=== PATIENT | female | born 1970 | race Caucasian/White ===

== ENCOUNTER → 2020-11-03 08:38 | Outpatient (CLI) | payer OTHER, SELFPAY ==
--- NOTE | 2020-11-03 | DI.MRI.S_ITS ---
PROCEDURE: MR CERVICAL SPINE WO/W CON INDICATIONS: Arthrodesis status TECHNIQUE: Noncontrast sagittal T1 spin echo and T2 fast spin echo, sagittal STIR, foraminal oblique sagittal T2 fast spin echo, axial gradient echo or T2 fast spin echo through the cervical spine. After the administration of contrast, axial and sagittal T1 spin echo with fat saturation through the cervical spine. COMPARISON: [facility], MR, C-SPINE WITHOUT CONTRAST, 03/20/2016, 9:00. [facility], CR, XR CERVICAL SPINE 2 OR 3 VIEWS, 05/10/2017, 9:42. FINDINGS: Image quality: Partially degraded by motion artifact.. Alignment and curvature: There is loss of normal cervical lordosis. There is mild grade 1 anterolisthesis of C5 on C6. Marrow: Marrow is normal in overall signal, without suspicious enhancement. C5-C6 fusion has been performed, as before. Spinal cord: Visualized spinal cord has normal size and signal. No cerebellar tonsillar herniation. No abnormal intramedullary enhancement. Paraspinous soft tissues: No paravertebral masses or suspicious enhancement. C2-3: Moderate disc desiccation. No significant canal, or foraminal stenosis. No significant change. C3-4: Moderate disc desiccation. Mild facet and uncovertebral hypertrophy bilaterally. No significant canal, or foraminal stenosis. No significant change. C4-5: Moderate disc desiccation. Mild facet and uncovertebral hypertrophy bilaterally. No significant canal stenosis. No right foraminal stenosis. Increased, moderate left foraminal stenosis.. C5-6: Status post fusion. Left posterolateral protrusion/osteophyte. Mild facet and uncovertebral hypertrophy bilaterally. Mild canal stenosis is unchanged. There is severe left and moderate right foraminal stenosis, as before. Left C6 nerve root compression, as before. No significant change. C6-7: Mild disc desiccation and diffuse disc bulge. Mild facet and uncovertebral hypertrophy bilaterally. No significant canal stenosis. Mild left foraminal stenosis. No right foraminal stenosis. No significant change. C7-T1: Mild facet and uncovertebral hypertrophy. No significant canal stenosis. Mild left greater than right foraminal stenosis. No significant change. IMPRESSION: 1. Postsurgical sequelae. 2. Multilevel degenerative disc and facet disease, as well as uncovertebral hypertrophy. 3. Mild multilevel canal stenosis. 4. Multilevel foraminal stenoses, worst at C5-C6 where there is associated intraforaminal nerve root compression. Dictated by: Anette Aguilera M.D. on 11/03/2020 at 9:59 Approved by: Anette Aguilera M.D. on 11/03/2020 at 10:07
== END ==
PROVIDERS: PCP Student in an Organized Health Care Education/Training Program; Referring Provider Neurological Surgery; Visit Provider Neurological Surgery
DX: M47.22 Other spondylosis with radiculopathy, cervical region (principal); M50.123 Cervical disc disorder at C6-C7 level with radiculopathy; M48.02 Spinal stenosis, cervical region; Z98.1 Arthrodesis status
CPT/HCPCS: 72156; A9579

== ENCOUNTER 2021-01-31 13:10 | Emergency (ER) | payer OTHER, SELFPAY ==
[2021-01-31] VITALS (7 sets, daily range): BP systolic 96–110; BP diastolic 52–72; PULSE 71–92; RESP 8–34; TEMP 36.8; O2SAT 94–98; BMI 12.4
[2021-01-31 14:39] LABS: Add Manual Diff / Slide Review NO; Basophils Absolute Auto 100 /uL (0-100); Eosinophils Absolute Auto 100 /uL (0-450); Eosinophils Percent Auto 1.3 % (2-4); Hematocrit 42.5 % (36-46); Hemoglobin 14.6 g/dL (12.0-16.0); Lymphocytes Absolute Auto 2700 /uL (1100-4500); Lymphocytes Percent Auto 26.8 % (25-40); Mean Corpuscular HGB Conc 34.4 % (30-36); Mean Corpuscular Volume 98.7 fL (80-100); Monocytes Absolute Auto 1000 /uL (0-900); Monocytes Percent Auto 10.1 % (3-14); Neutrophils Absolute Auto 6000 /uL (1500-7000); Neutrophils Percent Auto 60.8 % (50-75); Platelet Count 319 X10^3/uL (150-400); Red Cell Distribution Width 13.7 % (11.6-14.8); White Blood Cell Count 9.9 X10^3/uL (4.5-11.0)
[2021-01-31 14:52] LABS: Alanine Aminotransferase 25 IU/L (<35); Albumin 4.6 g/dL (3.5-5.0); Albumin Globulin Ratio 1.7 (1.0-2.8); Alkaline Phosphatase 61 U/L (38-126); Aspartate Aminotransferase 22 IU/L (14-36); BUN Creatinine Ratio 21.2 (6-22); Bilirubin Total 0.4 mg/dL (0.2-1.3); Blood Urea Nitrogen 11 mg/dL (7-17); Carbon Dioxide 22 mmol/L (22-32); Chloride 107 mmol/L (98-107); Estimated Glomerular Filt Rate > 60.0 mL/min (>60); Globulin 2.7 g/dL (1.7-4.1); Glucose 94 mg/dL (70-100); HEMOLYSIS < 15 (0-50); Lipase 112 U/L (23-300); Sodium 137 mmol/L (137-145); Total Protein 7.3 g/dL (6.3-8.2)
--- NOTE | 2021-01-31 14:59 | ED_ITS ---
HPI - Seizure General Chief Complaint: Seizure Stated Complaint: Seizures/low k x7 days Time Seen by Provider: 01/31/21 14:36 Source: patient Mode of arrival: Ambulatory Limitations: no limitations History of Present Illness HPI Narrative: Patient is a 50-year-old female who is sent to the emergency department by her primary doctor for evaluation of potentially low potassium, seizure-like activity, failure to thrive another complaints. Patient states that she has a longstanding history of low potassium. She does take potassium supplementation. Approximately 1 week ago she started having isolated events where she was having shaking like activity. They lasted various amounts of time to include a few seconds up to a few minutes. Patient's states there periods of time before hand where she is very angry and inappropriate to people around her and then afterwards she becomes very depressed and crying and anxious. She has never had seizures in the past. He recently went to another facility after 1 of these events. Per report there were labs drawn in the patient had a low potassium. She states that it was not replaced at this facility. She did have a head CT performed and she states that she was told that everything looked fine. These reports were not available for my review. She had an appoint with her primary doctor today because of this and was sent to the emergency department for further evaluation. Related Data Previous Rx's Medication Instructions Recorded hydroxyzine pamoate 25 mg capsule 25 mg PO Q4HP PRN #60 cap 01/31/16 (Vistaril) hydrocodone 10 mg-acetaminophen 10.325 tab PO Q4HP PRN #60 tab 04/07/16 325 mg tablet (Mont[place]) hydroxyzine pamoate 25 mg capsule 25 mg PO Q4HP PRN #30 cap 04/07/16 levetiracetam 500 mg tablet 500 mg PO DAILY #30 tab 01/31/21 (Keppra) Allergies Allergy/AdvReac Type Severity Reaction Status Date / Time No Known Drug Allergies Allergy Verified 01/31/21 13:23 Review of Systems Constitutional Constitutional: Reports fatigue, Denies fever(s) and Denies headache(s) Eyes Eyes: Reports system reviewed and no additional complaints, except as documented ENT Ears, Nose, Mouth, and Throat: Denies headache(s) Cardiovascular Cardiovascular: Denies chest pain and Denies dyspnea Respiratory Respiratory: Denies dyspnea Gastrointestinal Gastrointestinal: Reports system reviewed and no additional complaints, except as documented and Denies change in bowel habits Musculoskeletal Musculoskeletal: Reports system reviewed and no additional complaints, except as documented Integumentary/Breasts Skin/Breast: Reports system reviewed and no additional complaints, except as documented Neurologic Neurologic: Reports system reviewed and no additional complaints, except as documented, Reports as per HPI and Denies headache(s) Endocrine Endocrine: Reports fatigue Hematologic/Lymphatic On Anticoagulants: No Allergic/Immunologic Allergic/Immunologic: Reports system reviewed and no additional complaints, except as documented Patient History Surgical History S/P cervical disc replacement Social History Smoking Status: Current every day smoker Smoking Status: Current every day smoker alcohol intake frequency: holidays/special occasions only Substance Use Type: does not use Exam Initial Vital Signs Initial Vital Signs: Vital Signs Temperature 98.2 F 01/31/21 13:23 Pulse Rate 92 H 01/31/21 13:23 Respiratory Rate 14 01/31/21 13:23 Blood Pressure 110/69 01/31/21 13:23 Pulse Oximetry 98 01/31/21 13:23 Const General: cooperative, comfortable, No acute distress, No in distress and frail appearing [facility] Head: normal to inspection and normocephalic Resp Auscultation: clear to auscultation bilaterally Cardio Rate: regular rate GI Inspection: normal to inspection Skin General: no rashes or lesions noted Neuro General: patient alert, patient awake, patient oriented x3, moves all extremities and no focal motor deficits Speech: speech normal Extrem General: normal to inspection Psych Appearance: grossly normal and well kempt Course Orders Ordered: Discontinued Medications Sodium Chloride (Normal Saline 0.9%) 1,000 mls @ 1,000 mls/hr IV BOLUS ONE Stop: 01/31/21 15:58 Last Infusion: 01/31/21 17:04 Dose: 0 mls/hr Documented by: Admin: 01/31/21 15:06 Dose: 1,000 mls/hr Documented by: VINNY Vital Signs Vital signs: Vital Signs - 8 hr 01/31/21 13:23 Temperature 98.2 F Pulse Rate 92 H Respiratory Rate 14 Blood Pressure 110/69 Pulse Oximetry 98 MDM - Seizure Lab Data Result diagrams: 01/31/21 14:30 11/16/21 14:30 Labs: Lab Results 01/31/21 01/31/21 01/31/21 Range/Units 14:30 14:30 14:30 WBC 9.9 (4.5-11.0) X10^3/uL RBC 4.30 (4.0-5.2) X10^6/uL Hgb 14.6 (12.0-16.0) g/dL Hct 42.5 (36-46) % MCV 98.7 (80-100) fL MCH 34.0 (26-34) PG MCHC 34.4 (30-36) % RDW 13.7 (11.6-14.8) % Plt Count 319 (150-400) X10^3/uL Neut % (Auto) 60.8 (50-75) % Lymph % (Auto) 26.8 (25-40) % [place]ague % (Auto) 10.1 (3-14) % Eos % (Auto) 1.3 L (2-4) % Baso % (Auto) 1.0 (0-2) % Neut # (Auto) 6000 (2010-2248) /uL Lymph # (Auto) 2700 (5024-7515) /uL [place] # (Auto) 1000 H (0-900) /uL Eos # (Auto) 100 (0-450) /uL Baso # (Auto) 100 (0-100) /uL Sodium Cancelled 137 Potassium Cancelled 4.0 Chloride Cancelled 107 Carbon Dioxide Cancelled 22 BUN Cancelled 11 Creatinine Cancelled 0.52 Estimated GFR Cancelled > 60.0 BUN/Creatinine Ratio Cancelled 21.2 Glucose Cancelled 94 Calcium Cancelled 10.0 Magnesium 2.0 (1.6-2.3) mg/dL Total Bilirubin 0.4 (0.2-1.3) mg/dL AST 22 (14-36) IU/L ALT 25 (<35) IU/L Alkaline Phosphatase 61 (38-126) U/L Total Protein 7.3 (6.3-8.2) g/dL Albumin 4.6 (3.5-5.0) g/dL Globulin 2.7 (1.7-4.1) g/dL Albumin/Globulin Ratio 1.7 (1.0-2.8) Lipase 112 (23-300) U/L TSH (0.47-4.68) uIU/mL Prolactin 11.5 (3.0-18.6) ng/mL Serum , Qual (Negative) Ethyl Alcohol ( - 10) mg/dL 01/31/21 01/31/21 01/31/21 Range/Units 14:30 14:30 14:30 WBC (4.5-11.0) X10^3/uL RBC (4.0-5.2) X10^6/uL Hgb (12.0-16.0) g/dL Hct (36-46) % MCV (80-100) fL MCH (26-34) PG MCHC (30-36) % RDW (11.6-14.8) % Plt Count (150-400) X10^3/uL Neut % (Auto) (50-75) % Lymph % (Auto) (25-40) % [place] % (Auto) (3-14) % Eos % (Auto) (2-4) % Baso % (Auto) (0-2) % Neut # (Auto) (6907-4662) /uL Lymph # (Auto) (4536-3586) /uL Montague # (Auto) (0-900) /uL Eos # (Auto) (0-450) /uL Baso # (Auto) (0-100) /uL Sodium Potassium Chloride Carbon Dioxide BUN Creatinine Estimated GFR BUN/Creatinine Ratio Glucose Calcium Magnesium (1.6-2.3) mg/dL Total Bilirubin (0.2-1.3) mg/dL AST (14-36) IU/L ALT (<35) IU/L Alkaline Phosphatase (38-126) U/L Total Protein (6.3-8.2) g/dL Albumin (3.5-5.0) g/dL Globulin (1.7-4.1) g/dL Albumin/Globulin Ratio (1.0-2.8) Lipase (23-300) U/L TSH 0.749 (0.47-4.68) uIU/mL Prolactin (3.0-18.6) ng/mL Serum , Qual Negative (Negative) Ethyl Alcohol < 10 ( - 10) mg/dL MDM Narrative Medical decision making narrative: Patient is cachectic and frail appearing but otherwise alert and oriented x3. Her labs today are unremarkable. Her potassium is unremarkable. No need for supplementation/replacement in the emergency department. She does have potassium supplements home she will continue to take. She has no focal neural deficits. Patient's did have a video of 1 of these seizure-like activity events and it does have some characteristics of a seizure. Potentially the move changes that she has before and after are the result of this. Per report she did have a head CT done at the outside facility at her prior visit. She stated that it was unremarkable. I feel that we can hold on further imaging for now. No indication for admission to the hospital today. She does need a referral to see Neurology. Her primary doctor can put this in for her. She was informed of this. We will start her on anti seizure medication because of the events she is having. She understands that this dose may need to be titrated. She was okay with going home. She was given return precautions. She expressed understanding and agreement. Discharge Plan Departure Patient Disposition: Home Clinical Impression: Seizure-like activity Instructions: DI for Seizure (Not Epilepsy/Seizure Disorder) Activity Restrictions/Additional Instructions: Continue to take all of your medications as directed. I do recommend you talk with your primary doctor about a referral to see Neurology. No driving until you are either cleared by your primary doctor or a neurologist. Return to the emergency department for any new or worsening symptoms Prescriptions: New levetiracetam [Keppra] 500 mg tablet 500 mg PO DAILY Qty: 30 0RF No Action hydroxyzine pamoate [Vistaril] 25 MG capsule 25 mg PO Q4HP PRNQty: 60 1RF hydroxyzine pamoate 25 MG capsule 25 mg PO Q4HP PRNQty: 30 0RF hydrocodone-acetaminophen [[place]] 10 MG/325 MG tablet 10.325 tab PO Q4HP PRNQty: 60 0RF Referrals: Vu Carmona DO [Primary Care Provider] -
[2021-01-31 15:04] LABS: Pregnancy Test Serum,Qual Negative (Negative)
[2021-01-31] MEDS: SODIUM CHLORIDE 0.9% 1,000 ML 1000 ML IV (15:06)
[2021-01-31 15:08] LABS: Ethanol (ETOH) < 10 mg/dL; Prolactin 11.5 ng/mL (3.0-18.6)
[2021-01-31 15:39] LABS: Thyroid Stimulating Hormone 0.749 uIU/mL (0.47-4.68)
== END 2021-01-31 17:06 | disposition home or self-care (01) ==
PROVIDERS: Emergency Provider Emergency Medicine; PCP Student in an Organized Health Care Education/Training Program
DX: R56.9 Unspecified convulsions (principal)
CPT/HCPCS: 36415; 80053; 80320; 83690; 83735; 84146; 84443; 84703; 85025; 96360; 96361; 99283; 99284